=== PATIENT | female | born 1940 | race Two or more races ===

== ENCOUNTER 2024-04-03 18:39 | Inpatient (IN) | payer MEDICARE, OTHER ==
[~2024-04-03] VITALS: Ht 142.2 cm; Wt 46.8 kg
--- NOTE | 2024-04-03 19:26 | ED.PDOC ---
SOB-HPI HPI Comments 83-year-old female who came to ER via EMS for shortness of breath. Patient described to be very healthy, with no medical problems, walking/swimming multiple times a week. Was noted for the past few days that patient has been generally weak and short of breath. Patient was seen at [facility], diagnostics done, and was diagnosed to have bilateral pleural effusion, rule out congestive heart failure. Patient was transferred to this institution for further evaluation and management Chief Complaint: Shortness of Breath Time Seen by MD: 19:26 Primary Care Provider: unknown Reviewed notes: Nurses Notes Information Source: Patient Mode of Arrival: EMS Severity: Moderate Timing: Hours Duration: Since onset Context: At Rest PE Risk Factors: None History of: None Prehospital treatment: Oxygen Modifying Factors: Nothing Past Medical History PAST MEDICAL HISTORY: Denies Past Medical History (Other): Chronic back pain Surgical History: Denies all surgeries AURICULOTHERAPIST History: Denies all AURICULOTHERAPIST Hx Family History Family History: Reviewed,noncontributory to illness Social History Smoker: Non-Smoker Alcohol: Denies ETOH Use Drugs: Denies Drug Use Lives In: Home Constitutional: reports: weakness; denies: chills, diaphoresis, fatigue, fever, malaise, sweats, others EENTM: denies: blurred vision, double vision, ear bleeding, ear discharge, ear drainage, ear pain, ear ringing, eye pain, eye redness, hearing loss, mouth pain, mouth swelling, nasal discharge, nose bleeding, nose congestion, nose pain, photophobia, tearing, throat pain, throat swelling, voice changes, others Respiratory: reports: SOB at rest, shortness of breath; denies: cough, hemoptysis, orthopnea, SOB with excertion, stridor, wheezing, others Cardiovascular: denies: chest pain, dizzy spells, diaphoresis, Dyspnea on exertion, edema, irregular heart beat, left arm pain, lightheadedness, palpitations, PND, syncope, others Gastrointestinal: denies: abdomen distended, abdominal pain, blood streaked bowels, constipated, diarrhea, dysphagia, difficulty swallowing, hematemesis, melena, nausea, poor appetite, poor fluid intake, rectal bleeding, rectal pain, vomiting, others Genitourinary: denies: abnormal vagina bleeding, burning, dyspareunia, dysuria, flank pain, frequency, hematuria, incontinence, pain, , vagina discharge, urgency, others Neurological: denies: dizziness, fainting, headache, left sided numbness, left sided weakness, numbness, paresthesia, pre-existing deficit, right sided numbness, right sided weakness, seizure, speech problems, tingling, tremors, weakness, others Musculoskeletal: denies: back pain, gout, joint pain, joint swelling, muscle pain, muscle stiffness, neck pain, others Integumetry: denies: bruises, change in color, change in hair/nails, dryness, laceration, lesions, lumps, rash, wounds, others Allergic/Immunocompromised: denies: Difficulty Healing, Frequent Infections, Hives, Itching, others Hematologic/Lymphatic: denies: anemia, blood clots, easy bleeding, easy bruising, swollen glands, others Endocrine: denies: excessive hunger, excessive sweating, excessive thirst, excessive urination, flushing, intolerance to cold, intolerance to heat, unexplained weight gain, unexplained weight loss, others Psychiatric: denies: anxiety, bipolar disorder, depression, hopeless, panic disorder, schizophrenia, sleepless, suicidal, others Physical Exam General Appearance: No Apparent Distress, Normal HEENT: Normal ENT Inspection, Pharynx Normal, TMs Normal Neck: Full Range of Motion, Non-Tender, Normal, Normal Inspection Respiratory: Chest Non-Tender, Lungs Clear, No Accessory Muscle Use, No Respiratory Distress, Normal Breath Sounds Cardiovascular: No Edema, No JVD, No Murmur, No Gallop, Normal Peripheral Pulses, Regular Rate/Rhythm Breast Exam: Deferred Gastrointestinal: No Organomegaly, Non Tender, No Pulsatile Mass, Normal Bowel Sounds, Soft Genitalia: Deferred Pelvic: Deferred Rectal: Deferred Extremities: No calf tenderness, Normal capillary refill, Normal inspection, Normal range of motion, Non-tender, No pedal edema Musculoskeletal : Apperance: Normal Neurologic: Alert, international trade specialist II-XII nml as Tested, No Motor Deficits, Normal Affect, Normal Mood, No Sensory Deficits Cerebellar Function: Normal Reflexes: Normal Skin: Dry, Normal Color, Warm Lymphatic: No Adenopathy Was a procedure done? Was a procedure done?: No Differential Dx Differential Diagnosis: CHF, COPD, Pneumonia, Respiratory Distress, Other (Pleural effusion) X-Ray, Labs, Meds, VS Vital Signs Date Time Temp Pulse Resp B/P (MAP) Pulse Ox O2 Delivery O2 Flow Rate FiO2 04/03/24 18:55 98.1 72 20 144/91 (108) 98 Lab Test 04/03/24 20:01 04/03/24 19:18 Range/Units Troponin I High Sensitivity Pending 30 </=34 ng/L White Blood Count 6.7 4.4-10.8 10^3/uL Red Blood Count 4.05 4.0-5.20 10^6/uL Hemoglobin 13.2 12.2-16.2 g/dL Hematocrit 38.9 36.0-46.0 % Mean Corpuscular Volume 95.9 80.0-100.0 fL Mean Corpuscular Hemoglobin 32.5 H 28.0-32.0 pg Mean Corpuscular Hemoglobin Concent 33.9 32.0-36.0 g/dL Red Cell Distribution Width 15.1 H 11.8-14.3 % Platelet Count 302 140-450 10^3/uL Mean Platelet Volume 6.8 L 6.9-10.8 fL Neutrophils (%) (Auto) 69.9 37.0-80.0 % Lymphocytes (%) (Auto) 16.6 10.0-50.0 % Monocytes (%) (Auto) 11.3 0.0-12.0 % Eosinophils (%) (Auto) 1.4 0.0-7.0 % Basophils (%) (Auto) 0.8 0.0-2.0 % Neutrophils # (Auto) 4.7 1.6-8.6 10 ^3/uL Lymphocytes # (Auto) 1.1 0.4-5.4 10 ^3/uL Monocytes # (Auto) 0.8 0-1.3 10 ^3/uL Eosinophils # (Auto) 0.1 0-0.8 10 ^3/uL Basophils # (Auto) 0.1 0-0.2 10 ^3/uL Nucleated Red Blood Cells 0.5 % Prothrombin Time 12.0 H 9.3-11.8 sec Prothrombin Time INR 1.14 0.9-1.15 Activated Partial Thromboplast Time 28.5 24.5-34.5 SEC Sodium Level 140 136-145 mmol/L Potassium Level 3.4 L 3.5-5.1 mmol/L Chloride Level 100 98-107 mmol/L Carbon Dioxide Level 29 20-31 mmol/L Anion Gap 11 5-15 Blood Urea Nitrogen 16 9-23 mg/dL Creatinine 0.73 0.550-1.02 mg/dL Glomerular Filtration Rate Calc 82 >90 mL/min BUN/Creatinine Ratio 21.9 H 10.0-20.0 Serum Glucose 95 74-106 mg/dL Calcium Level 9.5 8.7-10.4 mg/dL Total Bilirubin 1.1 H 0.2-1.0 mg/dL Aspartate Amino Transferase (AST) 80 H 13-40 U/L Alanine Aminotransferase (ALT) 91 H 7-40 U/L Alkaline Phosphatase 251 H 46-116 U/L B-Type Natriuretic Peptide 837.98 0-100 pg/mL Total Protein 7.3 5.7-8.2 g/dL Albumin 4.5 3.2-4.8 g/dL Time of 1ST Reevaluation: 19:23 Reevaluation 1ST: Unchanged Time of 2ND Reevaluation: 20:34 Reevaluation 2ND: Unchanged Patient Education/Counseling: Diagnosis, Treatment Family Education/Counseling: Diagnosis, Treatment Departure 1 Departure Time of Disposition: 20:34 Impression: Primary Impression: Respiratory failure with hypoxia Additional Impressions: Congestive heart failure Bilateral pleural effusion Disposition: ADMITTED INPATIENT Admit to: Tele Condition: Guarded Critical Care Note Critical Care Time?: Yes (35 min-critical care time only) Critical care comment: Shortness of breath Total critical care time: Approximately 36 minutes Due to a high probability of clinically significant, life threatening deterioration, the patient required my highest level of preparedness to intervene emergently and I personally spent this critical care time directly and personally managing the patient. This critical care time included obtaining a history; examining the patient; pulse oximetry; ordering and review of studies; arranging urgent treatment with development of a management plan; evaluation of patient's response to treatment; frequent reassessment; and, discussions with o ther providers. This critical care time was performed to assess and manage the high probability of imminent, life-threatening deterioration that could result in multi-organ failure. It was exclusive of separately billable procedures and treating other patients. Stability Stability form required: No Heart Score Heart Score: Heart Score Response (Comments) Value History Moderate Suspicious 1 EKG Repolarization Disturb 1 Age >65 2 Risk Factors 1 or 2 risk factors 1 Troponin Normal limit 0 Total 5 I personally scribed for LUIS CONDON MD ([email or web address]) on 04/03/24 at 19:26. Electronically submitted by Steve Kelly ([email or web address]). LUIS CONDON MD Apr 03, 2024 19:26
[2024-04-03 19:43] LABS: Basophils # (auto) 0.1 10 ^3/uL (0-0.2); Basophils % (auto) 0.8 % (0.0-2.0); Eosinophils # (auto) 0.1 10 ^3/uL (0-0.8); Eosinophils % (auto) 1.4 % (0.0-7.0); Hematocrit 38.9 % (36.0-46.0); Hemoglobin 13.2 g/dL (12.2-16.2); Lymphocytes # (auto) 1.1 10 ^3/uL (0.4-5.4); Lymphocytes % (auto) 16.6 % (10.0-50.0); Mean Corpuscular Hemoglobin 32.5 pg (28.0-32.0); Mean Corpuscular Hgb Conc. 33.9 g/dL (32.0-36.0); Mean Corpuscular Volume 95.9 fL (80.0-100.0); Monocytes # (auto) 0.8 10 ^3/uL (0-1.3); Monocytes % (auto) 11.3 % (0.0-12.0); Neutrophils # (auto) 4.7 10 ^3/uL (1.6-8.6); Neutrophils % (auto) 69.9 % (37.0-80.0); Nucleated Red Blood Cells % 0.5 %; Platelet Count (auto) 302 10^3/uL (140-450); Red Blood Cells 4.05 10^6/uL (4.0-5.20); Red Cell Distribution Width 15.1 % (11.8-14.3); White Blood Cell 6.7 10^3/uL (4.4-10.8)
[2024-04-03 20:02] LABS: Albumin 4.5 g/dL (3.2-4.8); Anion Gap 11 (5-15); BUN/Creatinine Ratio 21.9 (10.0-20.0); Bilirubin, Total 1.1 mg/dL (0.2-1.0); Blood Urea Nitrogen 16 mg/dL (9-23); Calcium 9.5 mg/dL (8.7-10.4); Carbon Dioxide 29 mmol/L (20-31); Chloride 100 mmol/L (98-107); Glucose 95 mg/dL (74-106); Sodium 140 mmol/L (136-145); Total Protein 7.3 g/dL (5.7-8.2)
[2024-04-03 20:05] LABS: Alanine Aminotransferase 91 U/L (7-40); Alkaline Phosphatase 251 U/L (46-116); Aspartate Aminotransferase 80 U/L (13-40); INR 1.14 (0.9-1.15); Partial Thromboplastin Time 28.5 SEC (24.5-34.5); Potassium 3.4 mmol/L (3.5-5.1)
--- NOTE | 2024-04-03 20:35 | DVH ---
CHEST RADIOGRAPH Indication: SOB Technique: Single frontal view of the chest was obtained Comparison: None FINDINGS: Lines and Tubes: None Lungs: No focal consolidation. Pleura: No effusion. No pneumothorax. Cardiomediastinal contours: Unremarkable Bones: No acute osseous abnormality. IMPRESSION: 1. No acute cardiopulmonary disease.
[2024-04-03 21:05] VITALS: PULSE 68; RESP 16; O2SAT 95
[2024-04-03] MEDS ORDERED: HYDROcodone-ACET 5/325MG TAB PO PRN (22:00)
[2024-04-03] MEDS ORDERED: ONDANSETRON HCL 4 MG/2 ML VIAL IV PRN (22:00)
[2024-04-03] MEDS ORDERED: ACETAMINOPHEN 325 MG TAB PO PRN (22:00)
[2024-04-03] MEDS ORDERED: NITROGLYCERIN 0.4 MG SL TAB SL PRN (22:00)
[2024-04-03] MEDS ORDERED: IPRATROPIUM BROM 0.5 MG/2.5ML INH SOL NEB PRN (22:00)
[2024-04-03] MEDS ORDERED: MORPHINE SULFATE INJ 2 MG/ml SYRG IV PRN (22:00)
[2024-04-03] MEDS ORDERED: hydrALAZINE HCL 20 MG/ML VL IV PRN (22:00)
[2024-04-03] MEDS ORDERED: ALBUTEROL SULF 2.5 MG/0.5ML(0.5%) NEB SOLN NEB PRN (22:00)
--- NOTE | 2024-04-03 22:20 | DVHHP2 ---
History of Present Illness Reason for Visit: Respiratory failure with hypoxia History of Present Illness The patient is a 83-year-old female with past medical history of chronic back pain and neuropathy presented to [facility] ED with complaint of shortness of breaths. As reported by daughter, patient patient travel from [facility] for holiday visit and started experiencing shortness of breaths. Initially symptoms were ignored believing it was due to the high attitude of [facility]. However, symptoms progressively get worse with generalized weakness, persistent shortness of breaths, SOB at rest, on exertion, getting worse that she was seen at [facility]. Imaging reports at the hospital revealing bilateral pleural effusion, rule out congestive heart failure, and was transferred to our facility ED for higher level of care. Patient was seen and evaluated in the ED, laboratory data shows WBC 6.7, platelets 302, sodium 140, potassium 3.4, BUN 16, creatinine 0.73, GFR 82, glucose 95, AST 80, ALT 91, troponin 31, BNP 837.98, total bilirubin 1.1, blood pressure 144/91, heart rate 68, temperature 97.8 F, O2 saturation 95% on oxygen. Chest x-ray showed no acute cardiopulmonary disease. Patient was started on IV Lasix, please see medication section in the computer. On my assessment, patient's daughter at bedside, denies chest pain, no headache, no dizziness, no diaphoresis, no abdominal pain, no diarrhea, no nausea, no vomiting, no fever, no chills. Patient was admitted for further evaluation and medical management. Past Medical History Chronic back pain, neuropathy. Past Surgical History Right foot surgery Family History Reviewed, noncontributory to the management of this case. Past Social History The patient lives at home, likes walking/swimming multiple times a week, denies smoking, alcohol or illicit drugs abuse. Review of Systems Constitutional: Yes: Weakness; No: Fever, Chills, Sweats, Malaise, Other Eyes: No: Pain, Vision change, Conjunctivae inflammation, Eyelid inflammation, Other, Redness ENT: No: Ear pain, Ear discharge, Nose pain, Nose discharge, Nose congestion, Mouth pain, Mouth swelling, Throat pain, Throat swelling, Other Respiratory: Shortness of breath, SOB with excertion, Other (SOB at rest); No: Cough, Dry, Wheezing, Hemoptysis, Pleuritic Pain, Sputum, Wheezing Cardiovascular: No: Chest Pain, Palpitations, Orthopnea, Paroxysmal Noc. Dyspnea, Edema, Lt Headedness, Other Gastrointestinal: No: Nausea, Vomiting, Abdominal Pain, Diarrhea, Constipation, Melena, Hematochezia, Other Genitourinary: No Dysuria, No Frequency, No Incontinence, No Hematuria, No Retention, No Other Musculoskeletal: No: other, neck pain, shoulder pain, arm pain, back pain, hand pain, leg pain, foot pain Skin: No: Rash, Lesions, Jaundice, Bruising, Other Neurological: No: Weakness, Numbness, Incoordination, Change in speech, Confusion, Seizures, Other Allergies: Coded Allergies: NO KNOWN ALLERGIES (Unverified , 04/03/24) Exam Vital Signs Vital Signs Date Time Temp Pulse Resp B/P (MAP) Pulse Ox O2 Delivery O2 Flow Rate FiO2 04/03/24 21:05 68 16 95 Nasal Cannula* 3 32 04/03/24 21:04 97.8 141/81 (101) 97.8 General Appearance: Alert, Oriented X3, Cooperative, No acute distress HEENT: Atraumatic, PERRLA, EOMI, Mucous membr. moist/pink Respiratory: Normal air movement, Other (Diminished breath sounds) Cardiovascular: Regular rate, Normal S1, Normal S2, No murmurs Abdominal: Normal bowel sounds, Soft, No tenderness, No hepatospenomegaly, No masses Extremities: No clubbing, No cyanosis, No edema, Normal pulses, No tenderness/swelling Skin: No rashes, No breakdown, No significant lesion Neuro: Normal speech, Normal tone, Sensation intact, Cranial nerves 3-12 NL, Reflexes 2+, Other (Generalized weakness) Psych/Mental Status: Mental status NL, Mood NL Labs/Xrays Labs Test 04/03/24 20:01 04/03/24 19:18 Range/Units Troponin I High Sensitivity 31 </=34 ng/L White Blood Count 6.7 4.4-10.8 10^3/uL Red Blood Count 4.05 4.0-5.20 10^6/uL Hemoglobin 13.2 12.2-16.2 g/dL Hematocrit 38.9 36.0-46.0 % Mean Corpuscular Volume 95.9 80.0-100.0 fL Mean Corpuscular Hemoglobin 32.5 H 28.0-32.0 pg Mean Corpuscular Hemoglobin Concent 33.9 32.0-36.0 g/dL Red Cell Distribution Width 15.1 H 11.8-14.3 % Platelet Count 302 140-450 10^3/uL Mean Platelet Volume 6.8 L 6.9-10.8 fL Neutrophils (%) (Auto) 69.9 37.0-80.0 % Lymphocytes (%) (Auto) 16.6 10.0-50.0 % Monocytes (%) (Auto) 11.3 0.0-12.0 % Eosinophils (%) (Auto) 1.4 0.0-7.0 % Basophils (%) (Auto) 0.8 0.0-2.0 % Neutrophils # (Auto) 4.7 1.6-8.6 10 ^3/uL Lymphocytes # (Auto) 1.1 0.4-5.4 10 ^3/uL Monocytes # (Auto) 0.8 0-1.3 10 ^3/uL Eosinophils # (Auto) 0.1 0-0.8 10 ^3/uL Basophils # (Auto) 0.1 0-0.2 10 ^3/uL Nucleated Red Blood Cells 0.5 % Prothrombin Time 12.0 H 9.3-11.8 sec Prothrombin Time INR 1.14 0.9-1.15 Activated Partial Thromboplast Time 28.5 24.5-34.5 SEC Sodium Level 140 136-145 mmol/L Potassium Level 3.4 L 3.5-5.1 mmol/L Chloride Level 100 98-107 mmol/L Carbon Dioxide Level 29 20-31 mmol/L Anion Gap 11 5-15 Blood Urea Nitrogen 16 9-23 mg/dL Creatinine 0.73 0.550-1.02 mg/dL Glomerular Filtration Rate Calc 82 >90 mL/min BUN/Creatinine Ratio 21.9 H 10.0-20.0 Serum Glucose 95 74-106 mg/dL Calcium Level 9.5 8.7-10.4 mg/dL Total Bilirubin 1.1 H 0.2-1.0 mg/dL Aspartate Amino Transferase (AST) 80 H 13-40 U/L Alanine Aminotransferase (ALT) 91 H 7-40 U/L Alkaline Phosphatase 251 H 46-116 U/L B-Type Natriuretic Peptide 837.98 0-100 pg/mL Total Protein 7.3 5.7-8.2 g/dL Albumin 4.5 3.2-4.8 g/dL PATIENT: KATHIA KOVACS ACCT: [id number] UNIT: [id number] : 1940 LOC: ER ROOM / BED: / AGE / SEX: 83 / F ADM STATUS: REG ER SERVICE 05 ORDERING PHYSICIAN: LUIS CONDON MD PROCEDURE(s): CXRP - CHEST PORTABLE REASON: SOB ORDER NUMBER(s): [id number], ACCESSION NUMBER(s): [id number] CHEST RADIOGRAPH Indication: SOB Technique: Single frontal view of the chest was obtained Comparison: None FINDINGS: Lines and Tubes: None Lungs: No focal consolidation. Pleura: No effusion. No pneumothorax. Cardiomediastinal contours: Unremarkable Bones: No acute osseous abnormality. IMPRESSION: 1. No acute cardiopulmonary disease. Assessment/Plan Assessment/Plan Generalized weakness Hypokalemia Bilateral pleural effusion Acute respiratory failure with hypoxia Acute exacerbation of congestive heart failure Elevated liver enzymes Plan 1. Admit to telemetry unit 2. Breathing treatment 3. Pain control management 4. Management of fluids and electrolytes 5. Consultation for Cardiology 6. Diagnostic tests chest x-ray 7. DVT prophylaxis-on aspirin 8. Repeat labs CBC, CMP in a.m. 9. Continue with current medical management 10. Treatment plan discussed with patient/daughter and RN. Patient/daughter verbalized understanding. Plan discussed with: Patient, Daughter (At bedside), Other (RN) My Orders Orders - GERHARD SMITH DNP Procedure Category Date Status Time Albuterol Medneb PHA 04/03/24 Verified (Ventolin Medneb) 22:00 Ipratropium Medneb PHA 04/03/24 Verified (Atrovent Medneb) 22:00 Carvedilol Tablet PHA 04/03/24 Verified (Coreg Tablet) 22:00 Furosemide Injection PHA 04/03/24 Verified (Lasix Injection) 22:00 Furosemide Injection PHA 04/04/24 Verified (Lasix Injection) 10:00 Aspirin Tablet PHA 04/04/24 Verified 10:00 Hydralazine Injection PHA 04/03/24 Verified (Apresoline Inject 22:00 *Consult CONS 04/03/24 Verified / 21:55 Gabapentin Capsule PHA 04/03/24 Verified (Neurontin Capsule) 22:00 Admit ADMIT 04/03/24 Verified 21:[address] [facility] 04/03/24 Verified 21:55 Code Status CODE 04/03/24 Verified 21:55 Sodium Chloride Lock PHA 04/03/24 Verified (Saline Lock Ns) 22:00 Oxygen Per Hour RT 04/03/24 Verified 21:55 Hydrocodone-Acet PHA 04/03/24 Verified 5/325mg Tab (Racine 22:00 Ondansetron Hcl PHA 04/03/24 Verified (Zofran) 22:00 Docusate Sodium [facility] 04/03/24 Verified Capsule (Colace 22:[address] [facility] 04/03/[address] 21:55 Complete Blood Count LAB 04/04/24 Verified 04:00 Comprehensive LAB 04/04/24 Verified Metabolic Panel 04:00 Cardiac DIET 04/04/24 Verified Diet-2gna,Lofat,Lochol Breakfast Echo 2d Mode Cardiac US 04/03/24 Verified DOP 21:55 Condition: Serious [facility] 04/03/24 Verified 21:55 Acetaminophen Tablet [facility] 04/03/24 Verified (Tylenol Tablet) 22:[address] [facility] 04/03/24 Verified Compression Device Nitroglycerin [facility] 04/03/24 Verified Sublingual (Ntrostat 22:00 Morphine Sulfate [facility] 04/03/24 Verified Injection 22:00 [address] E[address] For Chest [facility] 04/03/24 Verified Pain 21:55 Notify Md Of Changes [facility] 04/03/24 Verified From Base 21:[address] [facility] 04/03/24 Verified 24 Hours 21:[address] [facility] 04/03/24 Verified Protocol 21:[address] [facility] 04/03/24 Verified Every Shift 21:55 Oxygen By Nasal RT 04/03/24 Verified Cannula 21:55 * Cardiology Consult CONS 04/03/24 Verified 21:55 Problem List: (1) Generalized weakness (2) Hypokalemia (3) Bilateral pleural effusion (4) Respiratory failure with hypoxia (5) Acute exacerbation of congestive heart failure (6) Elevated liver enzymes Date of Service: Apr 03, 2024 Billing Provider: GERHARD SMITH DNP Common Visit Codes: [id number] INP/OBS CARE (HIGH) GERHARD SMITH DNP Apr 03, 2024 22:20
[2024-04-03 23:06] VITALS: BP 141/81; PULSE 68; RESP 16; TEMP 97.8; O2SAT 95
[2024-04-03] MEDS: SODIUM CHLOR 0.9% PF (SALINE LOCK) 10ML VIAL/SYR IV SCH (23:13)
[2024-04-03] MEDS: CARVEDILOL 3.125 MG TAB PO SCH (23:20)
[2024-04-03] MEDS: GABAPENTIN 300 MG CAP PO SCH (23:20)
[2024-04-03] MEDS: FUROSEMIDE 40 MG/4 ML VIAL IV ONE (23:21)
[2024-04-03 23:23] VITALS: O2SAT 95
[2024-04-04] VITALS (9 sets, daily range): BP systolic 104–119; BP diastolic 57–77; PULSE 65–80; RESP 17–18; TEMP 98–98.5; O2SAT 92–98
[2024-04-04 06:58] LABS: Basophils # (auto) 0 10 ^3/uL (0-0.2); Basophils % (auto) 0.9 % (0.0-2.0); Eosinophils # (auto) 0.3 10 ^3/uL (0-0.8); Eosinophils % (auto) 5.8 % (0.0-7.0); Hematocrit 34.3 % (36.0-46.0); Hemoglobin 11.7 g/dL (12.2-16.2); Lymphocytes # (auto) 1.1 10 ^3/uL (0.4-5.4); Lymphocytes % (auto) 20.7 % (10.0-50.0); Mean Corpuscular Hemoglobin 32.8 pg (28.0-32.0); Mean Corpuscular Hgb Conc. 34.2 g/dL (32.0-36.0); Mean Corpuscular Volume 95.7 fL (80.0-100.0); Monocytes # (auto) 0.7 10 ^3/uL (0-1.3); Monocytes % (auto) 12.1 % (0.0-12.0); Neutrophils # (auto) 3.3 10 ^3/uL (1.6-8.6); Neutrophils % (auto) 60.5 % (37.0-80.0); Nucleated Red Blood Cells % 0.4 %; Platelet Count (auto) 275 10^3/uL (140-450); Red Blood Cells 3.59 10^6/uL (4.0-5.20); Red Cell Distribution Width 15.3 % (11.8-14.3); White Blood Cell 5.5 10^3/uL (4.4-10.8)
[2024-04-04] MEDS ORDERED: GABA-1250 PO (07:23)
[2024-04-04 07:32] LABS: Albumin 3.8 g/dL (3.2-4.8); Anion Gap 11 (5-15); BUN/Creatinine Ratio 23.7 (10.0-20.0); Blood Urea Nitrogen 18 mg/dL (9-23); Calcium 8.9 mg/dL (8.7-10.4); Carbon Dioxide 30 mmol/L (20-31); Glucose 87 mg/dL (74-106)
[2024-04-04 07:33] LABS: Bilirubin, Total 0.8 mg/dL (0.2-1.0); Total Protein 5.9 g/dL (5.7-8.2)
[2024-04-04 08:52] LABS: Alanine Aminotransferase 73 U/L (7-40); Alkaline Phosphatase 199 U/L (46-116); Aspartate Aminotransferase 68 U/L (13-40); Chloride 101 mmol/L (98-107); Potassium 2.8 mmol/L (3.5-5.1); Sodium 142 mmol/L (136-145)
[2024-04-04] MEDS: DOCUSATE SOD 100 MG CAP PO PRN (09:01)
[2024-04-04] MEDS: ASPirin 81 mg TAB PO SCH (09:03)
[2024-04-04] MEDS: FUROSEMIDE 40 MG/4 ML VIAL IV SCH (09:04)
--- NOTE | 2024-04-04 10:39 | DVHINCON2 ---
Date of service: Apr 03, 2024 Referring Physician GAVIOTA Haro Reason for Consultation Pleural effusions History of Present Illness 83-year-old woman with known prior medical history who presented with a chief complaint of shortness of breath. She was very active. She walks on sounds multiple signs for week. She noted progressive generalized weakness and shortness of breath. She was seen at [facility] where she was evaluated. She was found to have bilateral pleural effusions. She was transferred to [facility] for further evaluation and management. Pulmonary consultation is called for evaluation of pleural effusions. Review of systems: 14 point review of systems is negative unless otherwise noted above. Past medical history: Prior bilateral pleural effusions , chronic back pain. Past surgical history: None mentioned in prior surgeries. Medications: Reviewed Allergies: No known drug allergies. Family history: No family history of premature CAD. No family history of lung disease. Social history: Nonsmoker. No alcohol or illicit drug use. Lives at home. Allergies: Coded Allergies: NO KNOWN ALLERGIES (Unverified , 04/03/24) Home Meds Reported Medications Gabapentin (Gabapentin) 300 Mg Cap, 300 MG PO DAILY for 30 Days, MG 04/04/24 Current Medications Current Medications Medications (Trade) Dose Ordered Sig/Daniel Route PRN Reason Start Time Stop Time Status Last Admin Albuterol (Ventolin Medneb) 2.5 mg Q4HPRN PRN NEB SHORTNESS OF BREATH 04/03/24 22:00 Ipratropium [place] (Atrovent Medneb) 0.5 mg Q4HPRN PRN NEB SHORTNESS OF BREATH 04/03/24 22:00 Carvedilol (Coreg Tablet) 3.125 mg Q12HR PO 04/03/24 22:00 04/04/24 09:02 Furosemide (Lasix Injection) 40 mg DAILY IV 04/04/24 10:00 04/04/24 09:04 Aspirin 81 mg DAILY PO 04/04/24 10:00 04/04/24 09:03 Hydralazine HCl (Apresoline Injection) 10 mg Q6HP PRN IV SBP>150 04/03/24 22:00 Gabapentin (Neurontin Capsule) 300 mg BID PO 04/03/24 22:00 04/03/24 23:20 Sodium Chloride (Saline Lock Ns) 10 ml Q8HR IV 04/03/24 22:00 04/04/24 06:33 Acetaminophen/ Hydrocodone Bitart (Nelson 5/325MG Tab) 1 tab Q4HP PRN PO MODERATE PAIN (4-6 PAIN SCALE) 04/03/24 22:00 Ondansetron HCl (Zofran) 4 mg Q4HP PRN IV NAUSEA / VOMITING 04/03/24 22:00 Docusate Sodium (Colace Capsule) 100 mg BIDPRN PRN PO FOR CONSTIPATION 04/03/24 22:00 04/04/24 09:01 Acetaminophen (Tylenol Tablet) 650 mg Q6HP PRN PO PAIN SCALE 1-3 OR TEMP>100.4 04/03/24 22:00 Nitroglycerin (Ntrostat Sublingual) 0.4 mg Q5MINP PRN SL FOR CHEST PAIN 04/03/24 22:00 Morphine Sulfate 2 mg Q30M PRN IV FOR CHEST PAIN 04/03/24 22:00 Vital Signs Vital Signs Date Time Temp Pulse Resp B/P (MAP) Pulse Ox O2 Delivery O2 Flow Rate FiO2 04/04/24 09:30 97 Nasal Cannula* 3 32 04/04/24 09:04 113/61 04/04/24 09:02 71 04/04/24 03:25 98.1 18 98.1 Physical Exam Gen.: Patient lying in bed in no apparent distress. On supplemental oxygen. Head: Normocephalic, atraumatic Eyes: EOMI/PERRLA. Ears: Normal hearing. Normal anatomy. Neck/trachea: Trachea midline, supple. Nose: Normal external anatomy. Mouth: Moist mucous membranes. Chest: Decreased air entry bilaterally. No wheezing or rhonchi. Cardio vascular: Positive S1, positive S2. Regular rate and rhythm. Abdomen: Positive bowel sounds in all 4 quadrants. Soft, non-tender, non-distended. : Deferred. Rectal: Deferred Skin: Warm, dry. Extremities: 2+ radial pulses bilaterally. No lower extremity edema. Neuro: Awake, alert, oriented x3. No gross motor or sensory deficits. Cranial nerves II through XII intact. Gait not assessed. Labs/Diagnostic Data Labs Test 04/04/24 05:45 04/03/24 20:01 04/03/24 19:18 Range/Units White Blood Count 5.5 4.4-10.8 10^3/uL Red Blood Count 3.59 L 4.0-5.20 10^6/uL Hemoglobin 11.7 L 12.2-16.2 g/dL Hematocrit 34.3 #L 36.0-46.0 % Mean Corpuscular Volume 95.7 80.0-100.0 fL Mean Corpuscular Hemoglobin 32.8 H 28.0-32.0 pg Mean Corpuscular Hemoglobin Concent 34.2 32.0-36.0 g/dL Red Cell Distribution Width 15.3 H 11.8-14.3 % Platelet Count 275 140-450 10^3/uL Mean Platelet Volume 6.4 L 6.9-10.8 fL Neutrophils (%) (Auto) 60.5 37.0-80.0 % Lymphocytes (%) (Auto) 20.7 10.0-50.0 % Monocytes (%) (Auto) 12.1 H 0.0-12.0 % Eosinophils (%) (Auto) 5.8 0.0-7.0 % Basophils (%) (Auto) 0.9 0.0-2.0 % Neutrophils # (Auto) 3.3 1.6-8.6 10 ^3/uL Lymphocytes # (Auto) 1.1 0.4-5.4 10 ^3/uL Monocytes # (Auto) 0.7 0-1.3 10 ^3/uL Eosinophils # (Auto) 0.3 0-0.8 10 ^3/uL Basophils # (Auto) 0 0-0.2 10 ^3/uL Nucleated Red Blood Cells 0.4 % Sodium Level 142 136-145 mmol/L Potassium Level 2.8 L 3.5-5.1 mmol/L Chloride Level 101 98-107 mmol/L Carbon Dioxide Level 30 20-31 mmol/L Anion Gap 11 5-15 Blood Urea Nitrogen 18 9-23 mg/dL Creatinine 0.76 0.550-1.02 mg/dL Glomerular Filtration Rate Calc 78 >90 mL/min BUN/Creatinine Ratio 23.7 H 10.0-20.0 Serum Glucose 87 74-106 mg/dL Calcium Level 8.9 8.7-10.4 mg/dL Total Bilirubin 0.8 0.2-1.0 mg/dL Aspartate Amino Transferase (AST) 68 H 13-40 U/L Alanine Aminotransferase (ALT) 73 H 7-40 U/L Alkaline Phosphatase 199 H 46-116 U/L Total Protein 5.9 5.7-8.2 g/dL Albumin 3.8 3.2-4.8 g/dL Troponin I High Sensitivity 31 </=34 ng/L Prothrombin Time 12.0 H 9.3-11.8 sec Prothrombin Time INR 1.14 0.9-1.15 Activated Partial Thromboplast Time 28.5 24.5-34.5 SEC B-Type Natriuretic Peptide 837.98 0-100 pg/mL Assessment Impression: Acute hypoxic respiratory failure Acute exacerbation of CHF Elevated liver function tests Bilateral pleural effusions Atelectasis Hypokalemia Generalized weakness Plan: Chest x-ray imaging report reviewed. No acute opacities. Recommend ultrasound of the chest to evaluate if any pleural effusions. Very slight blunting of the costophrenic diaphragmatic angle on chest x-ray. Supplemental oxygen Keep O2 saturation above 92%. Continue diuresis. Monitor ins and outs. Monitor electrolytes Supplement as necessary. Monitor liver function tests. Trending down. DVT prophylaxis Prognosis: Guarded given multiple comorbidities. Rest of plan per hospitalist and other consultants. Thank you GAVIOTA Haro for allowing me to participate in this patient's care. Further recommendations will depend on patient's clinical course. Please do not hesitate to contact me if you have any questions or concerns. This medical document was created using an electronic medical record system with [employer] dictation system. Although this document has been carefully reviewed, there may still be some phonetic and typographical errors. These areas are purely typographical due to imperfections of the software programs, and do not reflect any compromise in the patient's medical care. Plan discussed with: Patient, Other (ROBERTA Singh, GAVIOTA) WILLY OH MD Apr 04, 2024 10:39
--- NOTE | 2024-04-04 11:22 | DVH ---
Right Chest Sonogram Clinical history: eval if there are pleural effusion for thora Technique: Limited sonographic evaluation of the right chest was performed. Findings/Impression: Right pleural effusion is noted at the right lung base. Pleural fusion is small
--- NOTE | 2024-04-04 12:30 | DVHINCON2 ---
Date Seen: Apr 04, 2024 Referring Physician GAVIOTA Haro Reason for Consultation CHF History of Present Illness This is an 83-year-old female patient who was transferred from [facility] for chief complaint of shortness of breath. The patient reports that she is visiting her daughter in [facility] from [facility]. While at her daughter's house in [facility], she started noticing shortness of breath on exertion for the last four days. The patient was initially taken to [facility] and transferred to this facility for higher level of care. Twelve lead electrocardiogram done at [facility] reveals normal sinus rhythm with nonspecific ST depression to lateral leads. Initial troponin level of 30ng/L with flat trend thereafter. Initial BNP level of 837.98pg/mL. Significant past medical history includes transient atrial fibrillation (not on any medications) and chronic back pain. Past Medical History Past medical history reviewed. No other significant than mentioned above. Past Surgical History Denies all previous surgeries Family History Family history reviewed. Social History Denies the use of tobacco, alcohol or illicit drugs. Allergies: Coded Allergies: NO KNOWN ALLERGIES (Unverified , 04/03/24) Home Meds Reported Medications Gabapentin (Gabapentin) 300 Mg Cap, 300 MG PO DAILY for 30 Days, MG 04/04/24 Home Meds Denies any home medications Current Medications Current Medications Medications (Trade) Dose Ordered Sig/Daniel Route PRN Reason Start Time Stop Time Status Last Admin Albuterol (Ventolin Medneb) 2.5 mg Q4HPRN PRN NEB SHORTNESS OF BREATH 04/03/24 22:00 Ipratropium [place] (Atrovent Medneb) 0.5 mg Q4HPRN PRN NEB SHORTNESS OF BREATH 04/03/24 22:00 Carvedilol (Coreg Tablet) 3.125 mg Q12HR PO 04/03/24 22:00 04/04/24 09:02 Furosemide (Lasix Injection) 40 mg DAILY IV 04/04/24 10:00 04/04/24 09:04 Aspirin 81 mg DAILY PO 04/04/24 10:00 04/04/24 09:03 Hydralazine HCl (Apresoline Injection) 10 mg Q6HP PRN IV SBP>150 04/03/24 22:00 Gabapentin (Neurontin Capsule) 300 mg BID PO 04/03/24 22:00 04/03/24 23:20 Sodium Chloride (Saline Lock Ns) 10 ml Q8HR IV 04/03/24 22:00 04/04/24 06:33 Acetaminophen/ Hydrocodone Bitart ([place] 5/325MG Tab) 1 tab Q4HP PRN PO MODERATE PAIN (4-6 PAIN SCALE) 04/03/24 22:00 Ondansetron HCl (Zofran) 4 mg Q4HP PRN IV NAUSEA / VOMITING 04/03/24 22:00 Docusate Sodium (Colace Capsule) 100 mg BIDPRN PRN PO FOR CONSTIPATION 04/03/24 22:00 04/04/24 09:01 Acetaminophen (Tylenol Tablet) 650 mg Q6HP PRN PO PAIN SCALE 1-3 OR TEMP>100.4 04/03/24 22:00 Nitroglycerin (Ntrostat Sublingual) 0.4 mg Q5MINP PRN SL FOR CHEST PAIN 04/03/24 22:00 Morphine Sulfate 2 mg Q30M PRN IV FOR CHEST PAIN 04/03/24 22:00 Review of Systems Constitutional: No symptom reported Ears, Nose, & Throat: No symptom reported Eyes: No symptom reported Neurological: No symptoms reported Pulmonary/Respiratory: Shortness of breath Cardiovascular: No symptom reported Gastrointestinal: No symptom reported Genitourinary: No symptom reported Musculoskeletal: No symptom reported Skin: No symptom reported Psychiatric: No symptom reported Endocrine: No symptom reported Hematologic/Lymphatic: No symptom reported Vital Signs Vital Signs Date Time Temp Pulse Resp B/P (MAP) Pulse Ox O2 Delivery O2 Flow Rate FiO2 04/04/24 09:30 97 Nasal Cannula* 3 32 04/04/24 09:04 113/61 04/04/24 09:02 71 04/04/24 08:00 17 04/04/24 03:25 98.1 98.1 Physical Exam General Appearance: Cooperative. Well-developed. Well-nourished. No acute distress. Pulmonary/Respiratory: Clear, bilateral breaths sounds. Cardiovascular/Chest: Regular rate and rhythm. Peripheral Pulses: 2+ Radial (R). 2+ Radial (L). 2+ Pedal (R). 2+ Pedal (L) Abdominal Exam: Normal bowel sounds. Ankle Exam: Negative ankle edema Lower extremities: Negative lower extremity edema Neuro/Mental Status: A/OX4, coherent. Thoughts/Psych: Normal thought pattern. Appropriate mood and affect. Good judgment and insight. Appearance: No acute distress. Skin Exam: Normal inspection. Normal color. Warm and dry. Labs/Diagnostic Data Labs Test 04/04/24 05:45 04/03/24 20:01 04/03/24 19:18 Range/Units White Blood Count 5.5 4.4-10.8 10^3/uL Red Blood Count 3.59 L 4.0-5.20 10^6/uL Hemoglobin 11.7 L 12.2-16.2 g/dL Hematocrit 34.3 #L 36.0-46.0 % Mean Corpuscular Volume 95.7 80.0-100.0 fL Mean Corpuscular Hemoglobin 32.8 H 28.0-32.0 pg Mean Corpuscular Hemoglobin Concent 34.2 32.0-36.0 g/dL Red Cell Distribution Width 15.3 H 11.8-14.3 % Platelet Count 275 140-450 10^3/uL Mean Platelet Volume 6.4 L 6.9-10.8 fL Neutrophils (%) (Auto) 60.5 37.0-80.0 % Lymphocytes (%) (Auto) 20.7 10.0-50.0 % Monocytes (%) (Auto) 12.1 H 0.0-12.0 % Eosinophils (%) (Auto) 5.8 0.0-7.0 % Basophils (%) (Auto) 0.9 0.0-2.0 % Neutrophils # (Auto) 3.3 1.6-8.6 10 ^3/uL Lymphocytes # (Auto) 1.1 0.4-5.4 10 ^3/uL Monocytes # (Auto) 0.7 0-1.3 10 ^3/uL Eosinophils # (Auto) 0.3 0-0.8 10 ^3/uL Basophils # (Auto) 0 0-0.2 10 ^3/uL Nucleated Red Blood Cells 0.4 % Sodium Level 142 136-145 mmol/L Potassium Level 2.8 L 3.5-5.1 mmol/L Chloride Level 101 98-107 mmol/L Carbon Dioxide Level 30 20-31 mmol/L Anion Gap 11 5-15 Blood Urea Nitrogen 18 9-23 mg/dL Creatinine 0.76 0.550-1.02 mg/dL Glomerular Filtration Rate Calc 78 >90 mL/min BUN/Creatinine Ratio 23.7 H 10.0-20.0 Serum Glucose 87 74-106 mg/dL Calcium Level 8.9 8.7-10.4 mg/dL Total Bilirubin 0.8 0.2-1.0 mg/dL Aspartate Amino Transferase (AST) 68 H 13-40 U/L Alanine Aminotransferase (ALT) 73 H 7-40 U/L Alkaline Phosphatase 199 H 46-116 U/L Total Protein 5.9 5.7-8.2 g/dL Albumin 3.8 3.2-4.8 g/dL Troponin I High Sensitivity 31 </=34 ng/L Prothrombin Time 12.0 H 9.3-11.8 sec Prothrombin Time INR 1.14 0.9-1.15 Activated Partial Thromboplast Time 28.5 24.5-34.5 SEC B-Type Natriuretic Peptide 837.98 0-100 pg/mL Assessment Rule out structural heart disease Hx of transient atrial fibrillation (not taking any medications) Right pleural effusion Hypokalemia Transaminitis Chronic back pain Plan/Recommendation We will continue following plan/recommendations (Dr. Magana): * Echocardiogram to evaluate cardiac function * Diuresis as tolerated * BP control * Monitor and replete electrolytes as needed Thank you for allowing us to care for this patient. Please call with any questions or concerns. Critical care time spent: 42 minutes This medical document was created using an electronic medical record system with voice recognition software and computerized dictation system. Although this document has been carefully reviewed, there might still be some phonetic and typographical errors. Occasional wrong-word or ``sound-alike substitutions may have occurred due to the inherent limitations of voice recognition software. These areas are purely typographical due to imperfections of the software programs and do not reflect any compromise in the patient's medical care. Jozef cohen read the chart carefully and recognize, using context, where these substitutions have occurred. Plan discussed with: Patient, Daughter Date of Service: Apr 04, 2024 Billing Provider: GLEN COLLINS Cardiology Common Codes: 02092-DHPECMA INP/OBS CARE (High) Cardiology Consultation Codes: 53909-[id number] CONSULT <45MIN GLEN COLLINS Apr 04, 2024 12:30
--- NOTE | 2024-04-04 12:37 | DVHPN2 ---
Reviewed: Care Plan, H&P, Labs, Medications, Previous Orders, Radiology Changes from previous H/P or p: No Changes Eyes: No Pain, No Vision change, No Conjunctivae inflammation, No Eyelid inflammation, No Other, No Redness ENT: No Ear pain, No Ear discharge, No Nose pain, No Nose discharge, No Nose congestion, No Mouth pain, No Mouth swelling, No Throat pain, No Throat swelling, No Other Cardiovascular: No Chest Pain, No Palpitations, No Orthopnea, No Paroxysmal Noc. Dyspnea, No Edema, No Lt Headedness, No Other Respiratory: No Cough, No Dry; Shortness of breath, SOB with excertion; No Wheezing, No Hemoptysis, No Pleuritic Pain, No Sputum; Other (SOB at rest) Gastrointestinal: No Nausea, No Vomiting, No Abdominal Pain, No Diarrhea, No Constipation, No Melena, No Hematochezia, No Other Genitourinary: No Dysuria, No Frequency, No Incontinence, No Hematuria, No Retention, No Other Musculoskeletal: No other, No neck pain, No shoulder pain, No arm pain, No back pain, No hand pain, No leg pain, No foot pain Skin: No Rash, No Lesions, No Jaundice, No Bruising, No Other Objective Vitals Vital Signs Date Time Temp Pulse Resp B/P (MAP) Pulse Ox O2 Delivery O2 Flow Rate FiO2 04/04/24 09:30 97 Nasal Cannula* 3 32 04/04/24 09:04 113/61 04/04/24 09:02 71 04/04/24 08:00 17 04/04/24 03:25 98.1 98.1 Intake/Output Intake and Output 04/04/24 07:00 Intake Total 300 ml Output Total 0 ml Balance 300 ml Intake Oral 300 ml Output Urine Total 0 ml Medications Current Medications Medications Dose Ordered Sig/Daniel Route Start Time Stop Time Status Last Admin Dose Admin Albuterol 2.5 mg Q4HPRN PRN NEB 04/03/24 22:00 Ipratropium [place] 0.5 mg Q4HPRN PRN NEB 04/03/24 22:00 Carvedilol 3.125 mg Q12HR PO 04/03/24 22:00 04/04/24 09:02 3.125 MG Furosemide 40 mg DAILY IV 04/04/24 10:00 04/04/24 09:04 40 MG Aspirin 81 mg DAILY PO 04/04/24 10:00 04/04/24 09:03 81 MG Hydralazine HCl 10 mg Q6HP PRN IV 04/03/24 22:00 Gabapentin 300 mg BID PO 04/03/24 22:00 04/03/24 23:20 300 MG Sodium Chloride 10 ml Q8HR IV 04/03/24 22:00 04/04/24 06:33 10 ML Acetaminophen/ Hydrocodone Bitart 1 tab Q4HP PRN PO 04/03/24 22:00 Ondansetron HCl 4 mg Q4HP PRN IV 04/03/24 22:00 Docusate Sodium 100 mg BIDPRN PRN PO 04/03/24 22:00 04/04/24 09:01 100 MG Acetaminophen 650 mg Q6HP PRN PO 04/03/24 22:00 Nitroglycerin 0.4 mg Q5MINP PRN SL 04/03/24 22:00 Morphine Sulfate 2 mg Q30M PRN IV 04/03/24 22:00 Laboratory Results Laboratory Tests 04/04/24 05:45 Chemistry Test 04/03/24 19:18 04/04/24 05:45 Albumin 4.5 g/dL (3.2-4.8) 3.8 g/dL (3.2-4.8) Calcium Level 9.5 mg/dL (8.7-10.4) 8.9 mg/dL (8.7-10.4) Total Protein 7.3 g/dL (5.7-8.2) 5.9 g/dL (5.7-8.2) Coagulation Test 04/03/24 19:18 Prothrombin Time 12.0 sec (9.3-11.8) H Prothrombin Time INR 1.14 (0.9-1.15) Activated Partial Thromboplast Time 28.5 SEC (24.5-34.5) Cardiac Markers Test 04/03/24 19:18 B-Type Natriuretic Peptide 837.98 pg/mL (0-100) LFT Test 04/03/24 19:18 04/04/24 05:45 Alanine Aminotransferase (ALT) 91 U/L (7-40) H 73 U/L (7-40) H Alkaline Phosphatase 251 U/L (46-116) H 199 U/L (46-116) H Aspartate Amino Transferase (AST) 80 U/L (13-40) H 68 U/L (13-40) H Total Bilirubin 1.1 mg/dL (0.2-1.0) H 0.8 mg/dL (0.2-1.0) Labs and/or images reviewed: Labs reviewed by me, Image(s) reviewed by me Assessment/Plan Assessment/Plan Acute hypoxic respiratory failure: Oxygen by nasal cannula pulmonary consult by Dr. Barkley appreciated Acute exacerbation of chronic congestive heart failure BNP 837, troponin negative: New diagnosis: Lasix, Coreg, echocardiogram, cardiology consult for Dr. Magana Moderate right pleural effusion Elevated liver function tests Generalized weakness Hypokalemia Peripheral neuropathy: Gabapentin Chronic back pain Time Spent 55 minutes Condition guarded Patient is full code Advanced care planning time 20 minutes Patient Visiting here from [place] Transferred from [facility] Plan discussed with: Patient Date of Service: Apr 04, 2024 Billing Provider: ANDRZEJ MCGOWAN MD Common Visit Codes: 57000-[id number] INP/OBS CARE(HIGH) Secondary Visit Codes: [id number]-[id number] CARE PLAN 30 MINUTES ANDRZEJ MCGOWAN MD Apr 04, 2024 12:37
[2024-04-04 13:24] LABS: Magnesium 2.1 mg/dL (1.6-2.6)
--- NOTE | 2024-04-04 14:24 | DVHSR ---
APPROVED REPORT EXAM: LIMITED Two-dimensional and M-mode echocardiogram with Doppler and color Doppler. Blood Pressure: 111/61 mmHg INDICATION CHF Exacerbation RISK FACTORS Height: 4' 8", Weight: 97 DIMENSIONS LVDd4.0 (3.8-5.7cm)LA (2D)4.6 (1.9-4.0cm)Aortic Root2.8 (2.0-3.7cm) LVDs3.2 (2.5-4.0cm)LA (MM) (1.9-4.0cm)Aortic Cusp Exc1.4 (1.5-2.0cm) EF (%) 50.0 (55-70%)Rt. Atrium3.9 (1.9-4.0cm)Asc. Aorta cm IVSd0.8 (0.7-1.1cm)RV (D) (1.8-2.4cm) PWd0.8 (0.7-1.1cm) Mitral Valve MitralMitral Stenosis E wave0.90m/sMV Mean GR.mmHg A wave0.60m/sMV Peak GR.mmHg E/A ratio1.52D MVAcm2 Aortic Valve Aortic ValveAortic Stenosis V10.90m/Vince Mean GR.5mmHg V21.50m/Vince Peak GR.9mmHg LVOT Diameter2.0 (1.8-2.4cm)Doppler AVA1.88cm2 Pulmonic Valve V20.50m/s Tricuspid Valve TR Velocity3.30m/s [id number] Other Information Quality : Technically LimitedRhythm : Technically limited study due to body habitus, patient with large breast implants. Conclusion Sinus rhythm. Left atrial enlargement. Mild aortic sclerosis. Mild degeneration of the anterior mitral leaflet. Calcified chordae. Valves appear to be structurally normal. EF of 55% with normal RV function. Dopplers unremarkable. No pericardial effusion masses or vegetations.
[2024-04-04] MEDS: POTASSIUM CHL 20 Meq TABLET PO ONE (15:03)
--- NOTE | 2024-04-04 19:41 | DVHPN2 ---
Progress Note - Dictate Date Seen: Apr 04, 2024 Medical Necessity Reason Pt with a Central, PICC or Fol: No Subjective Patient seen and examined at bedside. Remains on supplemental oxygen Overnight events reviewed. vital signs Vital Sign Date Time Temp Pulse Resp B/P (MAP) Pulse Ox O2 Delivery O2 Flow Rate FiO2 04/04/24 16:42 98.0 70 17 109/77 (88) 95 98.0 04/04/24 09:30 Nasal Cannula* 3 32 Total Intake and Output 04/03/24 04/03/24 04/04/24 15:00 23:00 07:00 Intake Total 300 ml Output Total 0 ml Balance 300 ml medications Current Medications Medications Dose Ordered Sig/Daniel Route Start Time Stop Time Status Last Admin Dose Admin Albuterol 2.5 mg Q4HPRN PRN NEB 04/03/24 22:00 Ipratropium Dawson 0.5 mg Q4HPRN PRN NEB 04/03/24 22:00 Carvedilol 3.125 mg Q12HR PO 04/03/24 22:00 04/04/24 09:02 3.125 MG Furosemide 40 mg DAILY IV 04/04/24 10:00 04/04/24 09:04 40 MG Aspirin 81 mg DAILY PO 04/04/24 10:00 04/04/24 09:03 81 MG Hydralazine HCl 10 mg Q6HP PRN IV 04/03/24 22:00 Sodium Chloride 10 ml Q8HR IV 04/03/24 22:00 04/04/24 14:09 10 ML Acetaminophen/ Hydrocodone Bitart 1 tab Q4HP PRN PO 04/03/24 22:00 Ondansetron HCl 4 mg Q4HP PRN IV 04/03/24 22:00 Docusate Sodium 100 mg BIDPRN PRN PO 04/03/24 22:00 04/04/24 09:01 100 MG Acetaminophen 650 mg Q6HP PRN PO 04/03/24 22:00 Nitroglycerin 0.4 mg Q5MINP PRN SL 04/03/24 22:00 Morphine Sulfate 2 mg Q30M PRN IV 04/03/24 22:00 Gabapentin 300 mg HS PO 04/04/24 22:00 objective Gen.: Patient lying in bed in no apparent distress. On supplemental oxygen. Head: Normocephalic, atraumatic. Eyes: EOMI/PERRLA. Ears: Normal hearing. Normal anatomy. Neck/trachea: Trachea midline, supple. Nose: Normal external anatomy. Mouth: Moist mucous membranes. Chest: Decreased air entry bilaterally. No wheezing or rhonchi. Cardiovascular: Positive S1, positive S2. Regular rate and rhythm. Abdomen: Positive bowel sounds in all 4 quadrants. Soft, non-tender, non- distended. : Deferred. Rectal: Deferred. Skin: Warm, dry. Intact. Extremities: 2+ radial pulses bilaterally. No lower extremity edema. Neuro: Awake, alert, oriented x3. No gross motor or sensory deficits. Cranial nerves II through XII intact. Gait not assessed. laboratory and microbiology Laboratory Tests 04/04/24 05:45 Test 04/04/24 05:45 Range/Units Serum Glucose 87 74-106 mg/dL Assessment/Plan Impression: Acute hypoxic respiratory failure Acute exacerbation of CHF Elevated liver function tests Bilateral pleural effusions Atelectasis Hypokalemia Generalized weakness Hx of nicotine dependence (quit 2005 - 0.5 PPD x20Y) Events: Remains on supplemental oxygen, 3 LPM NC Taper O2 as tolerated Chest ultrasound reveals small right pleural effusion. Continue bronchodilators PRN Incentive spirometry Diurese to euvolemia w/ Lasix Monitor renal function. Monitor electrolytes. Supplement as necessary. Potassium supplementation Labs and imaging reviewed. Rest of plan as noted below. Plan: Chest x-ray imaging report reviewed. No acute opacities. Very slight blunting of the costophrenic diaphragmatic angle on chest x-ray. Chest ultrasound reveals small right pleural effusion. Supplemental oxygen Keep O2 saturation above 92%. Continue diuresis. Monitor ins and outs. Monitor electrolytes Supplement as necessary. Monitor liver function tests. Trending down. DVT prophylaxis Prognosis: Guarded given multiple comorbidities. Rest of plan per hospitalist and other consultants. Thank you GAVIOTA Haro for allowing me to participate in this patient's care. Further recommendations will depend on patient's clinical course. Please do not hesitate to contact me if you have any questions or concerns. This medical document was created using an electronic medical record system with [employer] system. Although this document has been carefully reviewed, there may still be some phonetic and typographical errors. These areas are purely typographical due to imperfections of the software programs, and do not reflect any compromise in the patient's medical care. Plan discussed with: Patient, Other (ROBERTA Krishnan) WILLY OH MD Apr 04, 2024 19:41
[2024-04-04] MEDS: GABAPENTIN 300 MG CAP PO SCH (22:56)
[2024-04-05] VITALS (8 sets, daily range): BP systolic 99–122; BP diastolic 53–78; PULSE 71–82; RESP 17–20; TEMP 97.8–98.2; O2SAT 93–99
--- NOTE | 2024-04-05 12:26 | DVHPN2 ---
Reviewed: Care Plan, H&P, Labs, Medications, Previous Orders, Radiology Changes from previous H/P or p: No Changes Eyes: No Pain, No Vision change, No Conjunctivae inflammation, No Eyelid inflammation, No Other, No Redness ENT: No Ear pain, No Ear discharge, No Nose pain, No Nose discharge, No Nose congestion, No Mouth pain, No Mouth swelling, No Throat pain, No Throat swelling, No Other Cardiovascular: No Chest Pain, No Palpitations, No Orthopnea, No Paroxysmal Noc. Dyspnea, No Edema, No Lt Headedness, No Other Respiratory: No Cough, No Dry; Shortness of breath, SOB with excertion; No Wheezing, No Hemoptysis, No Pleuritic Pain, No Sputum; Other (SOB at rest) Gastrointestinal: No Nausea, No Vomiting, No Abdominal Pain, No Diarrhea, No Constipation, No Melena, No Hematochezia, No Other Genitourinary: No Dysuria, No Frequency, No Incontinence, No Hematuria, No Retention, No Other Musculoskeletal: No other, No neck pain, No shoulder pain, No arm pain, No back pain, No hand pain, No leg pain, No foot pain Skin: No Rash, No Lesions, No Jaundice, No Bruising, No Other Objective Vitals Vital Signs Date Time Temp Pulse Resp B/P (MAP) Pulse Ox O2 Delivery O2 Flow Rate FiO2 04/05/24 10:00 96 Nasal Cannula* 3 N/A Cool Aerosol 04/05/24 09:00 97.8 73 17 109/66 (80) 97.8 Intake/Output Intake and Output 04/05/24 07:00 Intake Total 1308 ml Output Total 150 ml Balance 1158 ml Intake Oral 1308 ml Output Urine Total 150 ml # Voids 2 Medications Current Medications Medications Dose Ordered Sig/Daniel Route Start Time Stop Time Status Last Admin Dose Admin Albuterol 2.5 mg Q4HPRN PRN NEB 04/03/24 22:00 Cancel Ipratropium [place] 0.5 mg Q4HPRN PRN NEB 04/03/24 22:00 Cancel Carvedilol 3.125 mg Q12HR PO 04/03/24 22:00 04/04/24 23:06 3.125 MG Furosemide 40 mg DAILY IV 04/04/24 10:00 04/04/24 09:04 40 MG Aspirin 81 mg DAILY PO 04/04/24 10:00 04/05/24 09:28 81 MG Hydralazine HCl 10 mg Q6HP PRN IV 04/03/24 22:00 Sodium Chloride 10 ml Q8HR IV 04/03/24 22:00 04/05/24 06:40 10 ML Acetaminophen/ Hydrocodone Bitart 1 tab Q4HP PRN PO 04/03/24 22:00 Ondansetron HCl 4 mg Q4HP PRN IV 04/03/24 22:00 Docusate Sodium 100 mg BIDPRN PRN PO 04/03/24 22:00 04/05/24 09:38 100 MG Acetaminophen 650 mg Q6HP PRN PO 04/03/24 22:00 Nitroglycerin 0.4 mg Q5MINP PRN SL 04/03/24 22:00 Morphine Sulfate 2 mg Q30M PRN IV 04/03/24 22:00 Gabapentin 300 mg HS PO 04/04/24 22:00 04/04/24 22:56 300 MG Laboratory Results Laboratory Tests 04/04/24 05:45 Labs and/or images reviewed: Labs reviewed by me, Image(s) reviewed by me Assessment/Plan Assessment/Plan Acute hypoxic respiratory failure: Oxygen by nasal cannula pulmonary consult by Dr. Barkley appreciated Acute exacerbation of chronic congestive heart failure BNP 837, troponin negative: New diagnosis: Lasix, Coreg, echocardiogram 55 % ejection fraction, cardiology consult for Dr. Magana appreciated Moderate right pleural effusion secondary to the CHF Elevated liver function tests Generalized weakness Hypokalemia Peripheral neuropathy: Gabapentin Chronic back pain Patient Very anxious and wants to go home today , daughter at the bedside Ordered ABG on room air to see if she qualifies for home oxygen Plan discussed with: Patient My Orders Orders - ANDRZEJ MCGOWAN MD Procedure Category Date Status Time * Cardiology Consult CONS 04/04/24 Transmitted 12:19 Gabapentin Capsule PHA 04/04/24 In Process (Neurontin Capsule) 22:00 Date of Service: Apr 05, 2024 Billing Provider: ANDRZEJ MCGOWAN MD Common Visit Codes: [id number] INP/OBS CARE(HIGH) ANDRZEJ MCGOWAN MD Apr 05, 2024 12:26
[2024-04-05] MEDS ORDERED: FURO1TAB31 PO (12:34)
[2024-04-05] MEDS ORDERED: CARV-214 PO (12:34)
[2024-04-05] MEDS ORDERED: POTA-36 PO (12:34)
--- NOTE | 2024-04-05 12:41 | DVHDS2 ---
Discharge Summary Date of Admission Apr 03, 2024 at 21:55 Date of Discharge: Apr 05, 2024 Admitting Diagnosis Shortness of breath Wounds: None Labs/Diagnostic Data: Laboratory Results Test 04/04/24 05:45 04/03/24 20:01 04/03/24 19:18 White Blood Count 5.5 10^3/uL (4.4-10.8) Red Blood Count 3.59 10^6/uL (4.0-5.20) Hemoglobin 11.7 g/dL (12.2-16.2) Hematocrit 34.3 % (36.0-46.0) Mean Corpuscular Volume 95.7 fL (80.0-100.0) Mean Corpuscular Hemoglobin 32.8 pg (28.0-32.0) Mean Corpuscular Hemoglobin Concent 34.2 g/dL (32.0-36.0) Red Cell Distribution Width 15.3 % (11.8-14.3) Platelet Count 275 10^3/uL (140-450) Mean Platelet Volume 6.4 fL (6.9-10.8) Neutrophils (%) (Auto) 60.5 % (37.0-80.0) Lymphocytes (%) (Auto) 20.7 % (10.0-50.0) Monocytes (%) (Auto) 12.1 % (0.0-12.0) Eosinophils (%) (Auto) 5.8 % (0.0-7.0) Basophils (%) (Auto) 0.9 % (0.0-2.0) Neutrophils # (Auto) 3.3 10 ^3/uL (1.6-8.6) Lymphocytes # (Auto) 1.1 10 ^3/uL (0.4-5.4) Monocytes # (Auto) 0.7 10 ^3/uL (0-1.3) Eosinophils # (Auto) 0.3 10 ^3/uL (0-0.8) Basophils # (Auto) 0 10 ^3/uL (0-0.2) Nucleated Red Blood Cells 0.4 % Sodium Level 142 mmol/L (136-145) Potassium Level 2.8 mmol/L (3.5-5.1) Chloride Level 101 mmol/L (98-107) Carbon Dioxide Level 30 mmol/L (20-31) Anion Gap 11 (5-15) Blood Urea Nitrogen 18 mg/dL (9-23) Creatinine 0.76 mg/dL (0.550-1.02) Glomerular Filtration Rate Calc 78 mL/min (>90) BUN/Creatinine Ratio 23.7 (10.0-20.0) Serum Glucose 87 mg/dL (74-106) Hemoglobin A1c 5.4 % A1C (<5.7) Calcium Level 8.9 mg/dL (8.7-10.4) Magnesium Level 2.1 mg/dL (1.6-2.6) Total Bilirubin 0.8 mg/dL (0.2-1.0) Aspartate Amino Transferase (AST) 68 U/L (13-40) Alanine Aminotransferase (ALT) 73 U/L (7-40) Alkaline Phosphatase 199 U/L (46-116) Total Protein 5.9 g/dL (5.7-8.2) Albumin 3.8 g/dL (3.2-4.8) Triglycerides Level 92 mg/dL (< 150) Cholesterol Level 108 mg/dL (< 200) LDL Cholesterol 56 mg/dL (< 100) HDL Cholesterol 35 mg/dL (40-59) Thyroid Stimulating Hormone (TSH) 4.23 uIU/mL (0.55-4.78) Troponin I High Sensitivity 31 ng/L (</=34) Prothrombin Time 12.0 sec (9.3-11.8) Prothrombin Time INR 1.14 (0.9-1.15) Activated Partial Thromboplast Time 28.5 SEC (24.5-34.5) B-Type Natriuretic Peptide 837.98 pg/mL (0-100) Other Laboratory Tests 04/04/24 05:45 Brief Hx & Hospital Course: Patient with no previous medical history except chronic peripheral neuropathy for which she takes gabapentin .. the patient is from [place] came [facility] to visit her daughter got sick and admitted to the [facility] and transferred to the [facility] ER. Came in for shortness of breaths found to have new onset congestive heart failure ejection fraction 55 percent. Seen by fluoroscope operator Dr. Vazquez placed on Lasix and Coreg. Also seen by pulmonology Dr. Barkley. Patient feels better now with less shortness of breaths. We will check ABG on room air to see if she qualifies for home oxygen. Currently she is on 2 L of oxygen by nasal cannula. The patient is insisting to be discharged home today and her daughter at the bedside wants patient to be discharged. Prescription for Lasix potassium and Coreg transmitted to the pharmacy. Mild bilateral pleural effusions possibly secondary to CHF. Consults/Reason for consult Cardiology Dr. Magana Pulmonology Dr. Barkley Operations or Procedures None Condition at Discharge: Fair Final Diagnosis/Problems List Acute hypoxic respiratory failure: Oxygen by nasal cannula pulmonary consult by Dr. Barkley appreciated Acute exacerbation of chronic congestive heart failure BNP 837, troponin negative: New diagnosis: Lasix, Coreg, echocardiogram 55 % ejection fraction, cardiology consult for Dr. Magana appreciated Moderate right pleural effusion secondary to the CHF Elevated liver function tests Generalized weakness Hypokalemia Peripheral neuropathy: Gabapentin Chronic back pain Discharge Disposition: Home Discharge Instruct/Medications Diet: Cardiac 2g Na,low cholest Activity: Light activity Follow Up/Referral: Follow up with your primary Dr in one week Follow up with fluoroscope operator in two weeks Use medications as prescribed Medications: Lasix Potassium Coreg Transmitted to the pharmacy 35 (Time Taken for discharge summary 35 minutes) Discharge Statement: "Patient was advised to return to the ER or call 911 if any headaches, dizziness, shortness of breath, chest pain, abdominal pain, bleeding, fevers, or worsening of medical condition. Patient was counseled about treatment plan, medications, possible side effects, patientverbalized understanding. All questions were answered to the best of my ability. This discharge took greater then 30 minutes in planning, reviewing documentation, counseling the patient, and discussing with other team members." ASSESSMENT ASSESSMENT Assessment Acute hypoxic respiratory failure: Oxygen by nasal cannula pulmonary consult by Dr. Barkley appreciated Acute exacerbation of chronic congestive heart failure BNP 837, troponin negative: New diagnosis: Lasix, Coreg, echocardiogram 55 % ejection fraction, cardiology consult for Dr. Magana appreciated Moderate right pleural effusion secondary to the CHF Elevated liver function tests Generalized weakness Hypokalemia Peripheral neuropathy: Gabapentin Chronic back pain Date of Service: Apr 05, 2024 Billing Provider: ANDRZEJ MCGOWAN MD Common Visit Codes: [id number]/[id number] DISCH DAY >30min ANDRZEJ MCGOWAN MD Apr 05, 2024 12:41
[2024-04-05 13:45] LABS: Base Excess 2.3 mmol/L (-2.0-3.0)
[2024-04-05 13:57] LABS: Basophils # (auto) 0 10 ^3/uL (0-0.2); Basophils % (auto) 0.7 % (0.0-2.0); Eosinophils # (auto) 0.4 10 ^3/uL (0-0.8); Eosinophils % (auto) 6.1 % (0.0-7.0); Hematocrit 42.4 % (36.0-46.0); Hemoglobin 13.8 g/dL (12.2-16.2); Lymphocytes # (auto) 1.1 10 ^3/uL (0.4-5.4); Lymphocytes % (auto) 17.2 % (10.0-50.0); Mean Corpuscular Hemoglobin 31.7 pg (28.0-32.0); Mean Corpuscular Hgb Conc. 32.5 g/dL (32.0-36.0); Mean Corpuscular Volume 97.3 fL (80.0-100.0); Monocytes # (auto) 0.8 10 ^3/uL (0-1.3); Monocytes % (auto) 12.4 % (0.0-12.0); Neutrophils # (auto) 4.2 10 ^3/uL (1.6-8.6); Neutrophils % (auto) 63.6 % (37.0-80.0); Nucleated Red Blood Cells % 0.1 %; Platelet Count (auto) 349 10^3/uL (140-450); Red Blood Cells 4.36 10^6/uL (4.0-5.20); Red Cell Distribution Width 15.2 % (11.8-14.3); White Blood Cell 6.7 10^3/uL (4.4-10.8)
[2024-04-05 14:01] LABS: Chloride 102 mmol/L (98-107); Sodium 140 mmol/L (136-145)
[2024-04-05 14:02] LABS: Anion Gap 7 (5-15); Carbon Dioxide 31 mmol/L (20-31)
[2024-04-05 14:03] LABS: Calcium 9.9 mg/dL (8.7-10.4)
[2024-04-05 14:08] LABS: BUN/Creatinine Ratio 17.3 (10.0-20.0); Blood Urea Nitrogen 14 mg/dL (9-23); Glucose 81 mg/dL (74-106)
--- NOTE | 2024-04-05 20:22 | DVHPN2 ---
Progress Note - Dictate Date Seen: Apr 05, 2024 Medical Necessity Reason Pt with a Central, PICC or Fol: No Subjective Patient seen and examined at bedside. Breathing comfortably on room air Overnight events reviewed. vital signs Vital Sign Date Time Temp Pulse Resp B/P (MAP) Pulse Ox O2 Delivery O2 Flow Rate FiO2 04/05/24 14:37 98.2 82 18 93 04/05/24 13:00 99/53 (68) 04/05/24 10:00 Nasal Cannula* 3 N/A Cool Aerosol Total Intake and Output 04/04/24 04/04/24 04/05/24 15:00 23:00 07:00 Intake Total 1058 ml 250 ml Output Total 150 ml Balance 1058 ml 100 ml medications Current Medications Medications Dose Ordered Sig/Daniel Route Start Time Stop Time Status Last Admin Dose Admin Albuterol 2.5 mg Q4HPRN PRN NEB 04/03/24 22:00 Cancel Ipratropium [place] 0.5 mg Q4HPRN PRN NEB 04/03/24 22:00 Cancel objective Gen.: Patient lying in bed in no apparent distress. On room air. Head: Normocephalic, atraumatic. Eyes: EOMI/PERRLA. Ears: Normal hearing. Normal anatomy. Neck/trachea: Trachea midline, supple. Nose: Normal external anatomy. Mouth: Moist mucous membranes. Chest: Decreased air entry bilaterally. No wheezing or rhonchi. Cardiovascular: Positive S1, positive S2. Regular rate and rhythm. Abdomen: Positive bowel sounds in all 4 quadrants. Soft, non-tender, non- distended. : Deferred. Rectal: Deferred. Skin: Warm, dry. Intact. Extremities: 2+ radial pulses bilaterally. No lower extremity edema. Neuro: Awake, alert, oriented x3. No gross motor or sensory deficits. Cranial nerves II through XII intact. Gait not assessed. laboratory and microbiology Laboratory Tests 04/05/24 13:35 Test 04/05/24 13:35 Range/Units Serum Glucose 81 74-106 mg/dL Assessment/Plan Impression: Acute hypoxic respiratory failure Acute exacerbation of CHF Elevated liver function tests Bilateral pleural effusions Atelectasis Hypokalemia Generalized weakness Hx of nicotine dependence (quit 2006 - 0.5 PPD x20Y) Events: Tapered from 3 LPM NC oxygen, currently on room air. No respiratory distress. Supplemental O2 PRN Continue bronchodilators PRN Incentive spirometry Diurese to euvolemia w/ Lasix Monitor renal function. Monitor electrolytes. Supplement as necessary. Potassium supplementation Recommend outpatient followup w/ Pulmonary Clinic for PFTs and CXR. Labs and imaging reviewed. Rest of plan as noted below. Plan: Chest x-ray imaging report reviewed. No acute opacities. Very slight blunting of the costophrenic diaphragmatic angle on chest x-ray. Chest ultrasound reveals small right pleural effusion. Supplemental oxygen PRN Keep O2 saturation above 92%. Continue diuresis. Monitor ins and outs. Monitor electrolytes Supplement as necessary. Monitor liver function tests. Trending down. DVT prophylaxis Prognosis: Guarded given multiple comorbidities. Rest of plan per hospitalist and other consultants. Thank you GAVIOTA Haro for allowing me to participate in this patient's care. Further recommendations will depend on patient's clinical course. Please do not hesitate to contact me if you have any questions or concerns. This medical document was created using an electronic medical record system with [employer] dictation system. Although this document has been carefully reviewed, there may still be some phonetic and typographical errors. These areas are purely typographical due to imperfections of the software programs, and do not reflect any compromise in the patient's medical care. Plan discussed with: Patient, Other (ROBERTA Krishnan) WILLY OH MD Apr 05, 2024 20:22
== END 2024-04-05 15:54 | disposition home or self-care (01) | DRG 291 ==
LOC: ER 18:39 → EDBD 18:39 → TELE 21:55 → TELE-WESTW 04-04 02:23
PROVIDERS: ADMIT Family Medicine; ATTEND Family Medicine
DX: I50.33 Acute on chronic diastolic (congestive) heart failure (principal); J96.01 Acute respiratory failure with hypoxia; J98.11 Atelectasis; G89.29 Other chronic pain; I48.91 Unspecified atrial fibrillation; G62.9 Polyneuropathy, unspecified; E87.6 Hypokalemia; R74.01 Elevation of levels of liver transaminase levels; Z87.891 Personal history of nicotine dependence
CPT/HCPCS: 36415; 36600; 71045; 76604; 80048; 80053; 80061; 82805; 83036; 83735; 83880; 84443; 84484; 85025; 85610; 85730; 93306; 99291; G0378